=== PATIENT | female | born 1990 | race African-American/Black ===

== ENCOUNTER 2018-10-29 14:30 | Emergency (ER) | payer OTHER ==
[~2018-10-29] VITALS: Ht 157.5 cm; Wt 65.8 kg
[~2018-10-29 14:30] MED LIST: ZOFRAN ODT4 MG PO; ZPAK PO
[2018-10-29 14:50] LABS: HEMATOCRIT 37.2 % (37.0-47.0); HEMOGLOBIN 11.7 gm/dL (12.0-15.0); MCH 21.2 pg (26.0-34.0); MCHC 31.5 g/dL (28.0-37.0); MCV 67.2 fL (80.0-100.0); MPV 9.7 fl. (7.2-11.1); NUCLEATED RBCS 0 /100WBC; PLATELET COUNT* 224 thou/uL (150-400); RBC 5.53 mil/uL (4.20-5.00); RDW-CV 17.5 % (10.5-14.5); WBC 8.5 thou/uL (4.0-11.0)
[2018-10-29 14:58] LABS: CREATININE 0.7 mg/dL (0.6-1.3); POTASSIUM 3.6 mmol/L (3.5-5.1)
[2018-10-29 15:02] LABS: ALBUMIN 4.1 g/dL (3.4-5.0); TOTAL BILIRUBIN 0.4 mg/dL (<0.1-1.0); TOTAL PROTEIN 8.1 g/dL (6.4-8.2)
[2018-10-29 15:13] LABS: ABSOLUTE LYMPHOCYTES 0.6 thou/uL (0.8-5.3); ABSOLUTE MONOCYTES 0.1 thou/uL (0.0-1.2); ABSOLUTE NEUTROPHILS 7.8 thou/uL (1.6-8.1)
[2018-10-29 15:14] LABS: PLATELET ESTIMATE ADEQUATE
[2018-10-29 15:17] LABS: ANISOCYTOSIS 2+
[2018-10-29 15:18] LABS: OVALOCYTES 1+; TEARDROPS Occasional
[2018-10-29 15:19] LABS: MICROCYTES 2+
[2018-10-29 15:54] LABS: INFLUENZA A ANTIGEN None Detected (None Detect)
[2018-10-29 15:55] LABS: URINE BILIRUBIN NEGATIVE (Negative); URINE BLOOD NEGATIVE (Negative); URINE CLARITY CLEAR; URINE COLOR YELLOW; URINE GLUCOSE-RANDOM NEGATIVE (Negative); URINE LEUKOCYTES-REFLEX NEGATIVE (Negative); URINE NITRITE-REFLEX NEGATIVE (Negative); URINE PROTEIN NEGATIVE (Negative)
[2018-10-29 16:00] LABS: URINE KETONES 3+ (Negative); URINE REDUCING SUBSTANCE NEGATIVE (Negative)
[2018-10-29] MEDS ORDERED: ZOFRAN ODT4 MG PO (16:06)
[2018-10-29 16:18] VITALS: BP 105/50
== END 2018-10-29 16:19 | disposition home or self-care (01) ==
LOC: M.ERS 14:30
PROVIDERS: Physician Assistant
DX: R11.2 Nausea with vomiting, unspecified (principal)

== ENCOUNTER 2019-01-04 09:17 | Emergency (ER) | payer OTHER ==
[~2019-01-04] VITALS: Ht 157.5 cm; Wt 67.1 kg
[2019-01-04] MEDS ORDERED: KEFLEX500 M1 PO (10:34)
[2019-01-04] MEDS ORDERED: NORCO 5-325 TA1 EACH PO (10:34)
[2019-01-04 10:57] VITALS: BP 116/72
== END 2019-01-04 10:58 | disposition home or self-care (01) ==
LOC: M.ERS 09:17
PROC: 0U9L0ZX Drainage of Vestibular Gland, Open Approach, Diagnostic (ICD-10-PCS; principal; 2019-01-04)
DX: N75.0 Cyst of Bartholin's gland (principal); F41.9 Anxiety disorder, unspecified

== ENCOUNTER 2019-01-05 20:05 | Emergency (ER) | payer OTHER ==
[~2019-01-05] VITALS: Ht 157.5 cm; Wt 67.1 kg
[~2019-01-05 20:05] MED LIST changes: +KEFLEX500 M1 PO; +NORCO 5-325 TA1 EACH PO
[2019-01-05 21:41] VITALS: BP 122/68
== END 2019-01-05 21:41 | disposition home or self-care (01) ==
LOC: M.ERS 20:05
DX: A59.9 Trichomoniasis, unspecified (principal); Z48.01 Encounter for change or removal of surgical wound dressing; F41.9 Anxiety disorder, unspecified

== ENCOUNTER 2019-02-28 21:57 | Emergency (ER) | payer OTHER ==
[~2019-02-28] VITALS: Ht 157.5 cm; Wt 67.1 kg
[2019-02-28 22:03] VITALS: BP 128/69
[2019-02-28] MEDS ORDERED: KEFLEX500 M1 PO (22:27)
== END 2019-02-28 22:39 | disposition home or self-care (01) ==
LOC: M.ERS 21:57
DX: N75.0 Cyst of Bartholin's gland (principal); F41.9 Anxiety disorder, unspecified